=== PATIENT | male | born 1955 | race Caucasian/White ===

== ENCOUNTER 2017-07-31 14:48 | Emergency (ER) | payer SELFPAY ==
[~2017-07-31 14:48] MED LIST: BACT800T5 PO; IBUP800T23 PO
[2017-07-31 15:24] VITALS: BP 217/102; PULSE 81; RESP 16; TEMP 98.2; O2SAT 99
--- NOTE | 2017-07-31 17:07 | PD ---
HPI Chief Complaint: Pain: Acute or Chronic Time Seen by Provider: 16:44 Travel History International Travel<30 days: No Contact w/Intl Traveler<30days: No Traveled to known affect area: No History of Present Illness HPI 62y male presents to the ED for concern of right hip pain that started suddenly Sunday and worsen Sunday morning. States the pain is 15/10 and located on the lateral area of the glutes. Says the pain radiates from the right glutes to the lateral aspect of the proximal knee. Pain exacerbated by standing. Denies fevers or chills. Denies clicks or pops. Denies trauma. Denies chronic medical issues. Denies history of cancer. Says he has been smoking at least a pack a day of cigarettes since he was 16 years old. Says he went to an urgent care where they performed an x-ray and they recommended further imaging in the emergency department. PFSH Past Medical History Cardiovascular Problems: Yes (HTN - DOES NOT TAKE MEDS) Social History Alcohol Use: No Tobacco Use: Yes Substance Use: No Allergies-Medications (Allergen,Severity, Reaction): Coded Allergies: No Known Allergies (Verified Adverse Reaction, Unknown, 07/31/17) Reported Meds & Prescriptions Reported Meds & Active Scripts Active Ibuprofen 800 Mg Tab 800 Mg PO Q8HR Bactrim DS (Sulfamethoxazole-Trimethoprim DS) 1 Tab Tab 1 Tab PO Q12HR Review of Systems Except as stated in HPI: all other systems reviewed are Neg Physical Exam Narrative GENERAL: Well-nourished, well-developed patient. SKIN: Focused skin assessment warm/dry. HEAD: Normocephalic. EYES: No scleral icterus. No injection or drainage. NECK: Supple, trachea midline. No JVD or lymphadenopathy. CARDIOVASCULAR: Regular rate and rhythm without murmurs, gallops, or rubs. RESPIRATORY: Breath sounds equal bilaterally. No accessory muscle use. Right hip-tenderness palpation just inferior to the ASIS to the greater trochanter, protrusion of the greater trochanter>left, Grade 5/5 strength of hip flexion neurovascularly intact RLE. MUSCULOSKELETAL: No cyanosis, or edema. BACK: Nontender without obvious deformity. No CVA tenderness. Data Data Last Documented VS Vital Signs Date Time Temp Pulse Resp B/P (MAP) Pulse Ox O2 Delivery O2 Flow Rate FiO2 07/31/17 22:39 07/31/17 22:29 77 16 96 Room Air 07/31/17 15:24 98.2 Orders Orders Mri Joint Hip W&W/O Contrast (07/31/17 ) Complete Blood Count With Diff (07/31/17 17:01) Comprehensive Metabolic Panel (07/31/17 17:01) Act Partial Throm Time (Ptt) (07/31/17 17:01) Prothrombin Time / Inr (Pt) (07/31/17 17:01) Acetamin-Hydrocod 325-5 Mg ([place] 5-325 (07/31/17 17:30) Gadodiamide Pf Inj (Omniscan Pf Inj) (07/31/17 19:35) Hip, Uni(Ap&Lat) W Ap Pelvis (07/31/17 ) Ed Discharge Order (07/31/17 22:33) Labs Laboratory Tests Test 07/31/17 17:10 White Blood Count 8.7 TH/MM3 Red Blood Count 4.94 MIL/MM3 Hemoglobin 14.8 GM/DL Hematocrit 44.8 % Mean Corpuscular Volume 90.7 FL Mean Corpuscular Hemoglobin 29.9 PG Mean Corpuscular Hemoglobin Concent 33.0 % Red Cell Distribution Width 13.8 % Platelet Count 207 TH/MM3 Mean Platelet Volume 7.3 FL Neutrophils (%) (Auto) 64.9 % Lymphocytes (%) (Auto) 22.5 % Monocytes (%) (Auto) 6.1 % Eosinophils (%) (Auto) 3.8 % Basophils (%) (Auto) 2.7 % Neutrophils # (Auto) 5.7 TH/MM3 Lymphocytes # (Auto) 2.0 TH/MM3 Monocytes # (Auto) 0.5 TH/MM3 Eosinophils # (Auto) 0.3 TH/MM3 Basophils # (Auto) 0.2 TH/MM3 CBC Comment DIFF FINAL Differential Comment Prothrombin Time 10.7 SEC Prothromb Time International Ratio 1.1 RATIO Activated Partial Thromboplast Time 27.8 SEC Blood Urea Nitrogen 18 MG/DL Creatinine 0.84 MG/DL Random Glucose 77 MG/DL Total Protein 7.5 GM/DL Albumin 4.0 GM/DL Calcium Level 9.0 MG/DL Alkaline Phosphatase 82 U/L Aspartate Amino Transf (AST/SGOT) 15 U/L Alanine Aminotransferase (ALT/SGPT) 16 U/L Total Bilirubin 0.6 MG/DL Sodium Level 139 MEQ/L Potassium Level 3.7 MEQ/L Chloride Level 106 MEQ/L Carbon Dioxide Level 28.7 MEQ/L Anion Gap 4 MEQ/L Estimat Glomerular Filtration Rate 93 ML/MIN [facility] Medical Decision Making Medical Screen Exam Complete: Yes Emergency Medical Condition: Yes Differential Diagnosis Right hip bursitis, osteoporosis, osteoarthritis, osteosarcoma Narrative Course 62y male presents to the ED for concern of right hip pain that started suddenly Sunday and worsen Sunday morning. States the pain is 15/10 and located on the lateral area of the glutes. Says the pain radiates from the right glutes to the lateral aspect of the proximal knee. Pain exacerbated by standing. Denies fevers or chills. Denies clicks or pops. Denies trauma. Denies chronic medical issues. Denies history of cancer. Says he has been smoking at least a pack a day of cigarettes since he was 16 years old. Says he went to an urgent care where they performed an x-ray and they recommended further imaging in the emergency department. Vital signs are stable. Hydrocodone for pain. MRI ordered as recommended from the x-ray at [facility]. I was asked to order an xray for evaluation of the hip as well. Labs ordered for IV contrast and evaluation of infectious process. CBC & BMP Diagram 07/31/17 17:10 Total Protein 7.5, Albumin 4.0, Calcium Level 9.0, Alkaline Phosphatase 82, Aspartate Amino Transf (AST/SGOT) 15, Alanine Aminotransferase (ALT/SGPT) 16, Total Bilirubin 0.6 MRI and x-ray pending as of transfer care to Dr. Valerio. Please see his notes for further information and disposition. Referrals: Orthopedist Additional Instructions: Follow-up with orthopedist as discussed. Disposition: 01 DISCHARGE HOME Condition: Stable Leti Luong July 31, 2017 17:07
[2017-07-31 17:19] LABS: AUTOMATED NEUTROPHIL # 5.7 TH/MM3 (1.8-7.7); BASOPHIL # 0.2 TH/MM3 (0-0.2); BASOPHIL % 2.7 % (0.0-2.0); EOSINOPHIL # 0.3 TH/MM3 (0-0.4); EOSINOPHIL % 3.8 % (0.0-4.0); HEMATOCRIT 44.8 % (39.0-51.0); HEMOGLOBIN 14.8 GM/DL (13.0-17.0); LYMPH % 22.5 % (9.0-44.0); MEAN CELL VOLUME 90.7 FL (80.0-100.0); MEAN CORPUSCULAR HEMOGLOBIN 29.9 PG (27.0-34.0); MEAN PLATELET VOLUME 7.3 FL (7.0-11.0); MONO % 6.1 % (0.0-8.0); MONOCYTE # 0.5 TH/MM3 (0-0.9); NEUT % 64.9 % (16.0-70.0); PLATELET COUNT 207 TH/MM3 (150-450); RED BLOOD COUNT 4.94 MIL/MM3 (4.50-5.90); RED CELL DISTRIBUTION WIDTH 13.8 % (11.6-17.2); WHITE BLOOD COUNT 8.7 TH/MM3 (4.0-11.0)
[2017-07-31 17:28] LABS: CHLORIDE 106 MEQ/L (98-107); SODIUM (NA) 139 MEQ/L (136-145)
[2017-07-31] MEDS ORDERED: ACETAMINOPHEN/HYDROcodone 325 MG/5 MG TAB PO ONE (17:30)
[2017-07-31 17:32] LABS: BICARBONATE 28.7 MEQ/L (21.0-32.0); BLOOD UREA NITROGEN 18 MG/DL (7-18); GLUCOSE,RANDOM 77 MG/DL (74-106)
[2017-07-31 17:34] LABS: INTERNATIONAL NORMALIZED RATIO 1.1 RATIO; PROTHROMBIN TIME - PATIENT 10.7 SEC (9.8-11.6)
[2017-07-31 17:35] LABS: ALT (GPT) 16 U/L (12-78); AST (GOT) 15 U/L (15-37); CREATININE 0.84 MG/DL (0.60-1.30); GLOMERULAR FILTRATION RATE 93 ML/MIN (>89)
[2017-07-31 17:37] LABS: TOTAL BILIRUBIN ADULT 0.6 MG/DL (0.2-1.0); TOTAL PROTEIN 7.5 GM/DL (6.4-8.2)
[2017-07-31 17:38] LABS: ALKALINE PHOSPHATASE 82 U/L (45-117)
[2017-07-31] MEDS ORDERED: GADODIAMIDE PF 287 MG/ML 5 ML VIAL (for RAD MRI) IVCONTRAST ONE (19:35)
[2017-07-31 21:25] VITALS: BP 154/68; PULSE 60; RESP 16; O2SAT 98
--- NOTE | 2017-07-31 21:58 | RADRPT ---
EXAM DATE/TIME: 07/31/2017 21:14 [facility] COMPARISON: No previous studies available for comparison. INDICATIONS : Right hip pain. No injury. MEDICAL HISTORY : None. SURGICAL HISTORY : None. ENCOUNTER: Initial ACUITY: 4 - 6 days PAIN SCORE: 6/10 LOCATION: Right hip. FINDINGS: The hips are symmetric without evidence of fracture or dislocation. There is mild superior joint spac e narrowing and subchondral sclerosis consistent with mild last arthritis. There is no displaced pelv ic fracture identified. There is a 14 mm well-circumscribed benign-appearing lucent lesion in the lat eral aspect of the right femoral head. Tiny enostosis in the visualized proximal left femoral diaphys is. CONCLUSION: Benign-appearing lucent lesion in the right femoral head. Mild degenerative changes bilaterally. No a cute bony findings. Aaron Santa MD on July 31, 2017 at 21:51 Board Certified Radiologist. This report was verified electronically.
--- NOTE | 2017-07-31 22:18 | RADRPT ---
EXAM DATE/TIME: 07/31/2017 19:14 [facility] COMPARISON: No previous studies available for comparison. INDICATIONS : Right hip pain for 3 days. CONTRAST: 12 cc Omniscan (gadodiamide) IV MEDICAL HISTORY : None. SURGICAL HISTORY : Umbilical hernia repair. ENCOUNTER: Initial ACUITY: 3 day PAIN SCORE: 5/10 LOCATION: Right hip. TECHNIQUE: Multiplanar, multisequence MRI examination was performed without contrast and after the intravenous a dministration of gadolinium. FINDINGS: There are degenerative changes in the hips bilaterally with subchondral cystic change in the superior acetabulum on both sides. There is a well-circumscribed benign-appearing lesion in the lateral right femoral head. The bony pelvis is benign in appearance. There is no evidence of periarticular mass or collection. No joint effusion is present. CONCLUSION: No acute findings Aaron Santa MD on July 31, 2017 at 22:12 Board Certified Radiologist. This report was verified electronically.
[2017-07-31 22:29] VITALS: BP 156/79; PULSE 77; RESP 16; O2SAT 96
--- NOTE | 2017-07-31 22:33 | PD ---
Physical Exam Narrative GENERAL: SKIN: Warm and dry. HEAD: Atraumatic. Normocephalic. EYES: Pupils equal and round. No scleral icterus. No injection or drainage. ENT: No nasal bleeding or discharge. Mucous membranes pink and moist. NECK: Trachea midline. No JVD. CARDIOVASCULAR: Regular rate and rhythm. RESPIRATORY: No accessory muscle use. Clear to auscultation. Breath sounds equal bilaterally. GASTROINTESTINAL: Abdomen soft, non-tender, nondistended. MUSCULOSKELETAL: Extremities without clubbing, cyanosis, or edema. No obvious deformities. NEUROLOGICAL: Awake and alert. No obvious cranial nerve deficits. Motor grossly within normal limits. Five out of 5 muscle strength in the arms and legs. Normal speech. PSYCHIATRIC: Appropriate mood and affect; insight and judgment normal. Data Data Last Documented VS Vital Signs Date Time Temp Pulse Resp B/P (MAP) Pulse Ox O2 Delivery O2 Flow Rate FiO2 07/31/17 22:29 77 16 156/79 (104) 96 Room Air 07/31/17 15:24 98.2 Orders Orders Mri Joint Hip W&W/O Contrast (07/31/17 ) Complete Blood Count With Diff (07/31/17 17:01) Comprehensive Metabolic Panel (07/31/17 17:01) Act Partial Throm Time (Ptt) (07/31/17 17:01) Prothrombin Time / Inr (Pt) (07/31/17 17:01) Acetamin-Hydrocod 325-5 Mg ([place] 5-325 (07/31/17 17:30) Gadodiamide Pf Inj (Omniscan Pf Inj) (07/31/17 19:35) Hip, Uni(Ap&Lat) W Ap Pelvis (07/31/17 ) Labs Laboratory Tests Test 07/31/17 17:10 White Blood Count 8.7 TH/MM3 Red Blood Count 4.94 MIL/MM3 Hemoglobin 14.8 GM/DL Hematocrit 44.8 % Mean Corpuscular Volume 90.7 FL Mean Corpuscular Hemoglobin 29.9 PG Mean Corpuscular Hemoglobin Concent 33.0 % Red Cell Distribution Width 13.8 % Platelet Count 207 TH/MM3 Mean Platelet Volume 7.3 FL Neutrophils (%) (Auto) 64.9 % Lymphocytes (%) (Auto) 22.5 % Monocytes (%) (Auto) 6.1 % Eosinophils (%) (Auto) 3.8 % Basophils (%) (Auto) 2.7 % Neutrophils # (Auto) 5.7 TH/MM3 Lymphocytes # (Auto) 2.0 TH/MM3 Monocytes # (Auto) 0.5 TH/MM3 Eosinophils # (Auto) 0.3 TH/MM3 Basophils # (Auto) 0.2 TH/MM3 CBC Comment DIFF FINAL Differential Comment Prothrombin Time 10.7 SEC Prothromb Time International Ratio 1.1 RATIO Activated Partial Thromboplast Time 27.8 SEC Blood Urea Nitrogen 18 MG/DL Creatinine 0.84 MG/DL Random Glucose 77 MG/DL Total Protein 7.5 GM/DL Albumin 4.0 GM/DL Calcium Level 9.0 MG/DL Alkaline Phosphatase 82 U/L Aspartate Amino Transf (AST/SGOT) 15 U/L Alanine Aminotransferase (ALT/SGPT) 16 U/L Total Bilirubin 0.6 MG/DL Sodium Level 139 MEQ/L Potassium Level 3.7 MEQ/L Chloride Level 106 MEQ/L Carbon Dioxide Level 28.7 MEQ/L Anion Gap 4 MEQ/L Estimat Glomerular Filtration Rate 93 ML/MIN [facility] Medical Record Reviewed: Yes Supervised Visit with HOLLY: No Narrative Course Patient was sent over from outside facility that performed an x-ray and found the lesion on the right femoral head and referred him to the emergency department to get an MRI performed. MRI of the hip was performed which was read by radiologist as normal examination X-rays of the hip and pelvis read by radiologist did show a benign-appearing lucent lesion in the right femoral head with degenerative changes bilaterally no acute bony findings. Diagnosis Primary Impression: Benign lucent lesion right femoral head Referrals: Lei Dawson MD Orthopedist Additional Instruction: Follow-up with orthopedist as discussed. Disposition: 01 DISCHARGE HOME Condition: Stable Austen Valerio MD July 31, 2017 22:33
== END 2017-07-31 22:42 | disposition home or self-care (01) ==
LOC: PHED 14:48 → PHEFT 22:42
DX: M89.9 Disorder of bone, unspecified (principal); M25.551 Pain in right hip; I10 Essential (primary) hypertension; F17.210 Nicotine dependence, cigarettes, uncomplicated
CPT/HCPCS: 73502; 73723; 80053; 85025; 85610; 85730; 99285; A9579